=== PATIENT | female | born 1960 | race Caucasian/White ===

== ENCOUNTER 2017-07-31 16:13 | Emergency (ER) | payer BC ==
[2017-07-31 16:20] VITALS: BP 136/76
--- NOTE | 2017-07-31 16:48 | UC ---
Complaint Female HPI - HPI Summary HPI Summary: PT WITH H/O RECURRENT UTI PRESENTS WITH ONSET OF DYSURIA AND LOWER ABDOMINAL DISCOMFORT YESTERDAY. NO FEVER, NAUSEA OR BACK PAIN. FINISHED A 7 DAY COURSE OF KEFLEX FOR KLEBSIELLA UTI JUST 2 DAYS AGO. SX IMPROVED WHILE ON THE ANTIBIOTIC BUT DID NOT ENTIRELY RESOLVE. PT FOLLOWS WITH DR. ZALDIVAR (UROLOGY). - History Of Current Complaint Chief Complaint: UCGU Stated Complaint: UTI Time Seen by Provider: 07/31/17 16:33 Hx Obtained From: Patient Hx Last Menstrual Period: NOW Onset/Duration: Gradual Onset, Lasting Hours, Still Present Severity Initially: Moderate Severity Currently: Moderate Pain Scale Used: 0-10 Numeric Character: Burning Aggravating Factor(s): Urination Alleviating Factor(s): Nothing Associated Signs And Symptoms: Negative: Fever, Back Pain, Vaginal Bleeding/ Discharge, Vaginal Discharge, Nausea, Vomiting(# Of Episodes =), Genital Swelling, Genital Blisters - Allergies/Home Medications Allergies/Adverse Reactions: Allergies Allergy/AdvReac Type Severity Reaction Status Date / Time Nitrofurantoin Allergy Severe Hives Verified 07/31/17 16:17 [From Macrobid] Sulfa Drugs Allergy Severe Hives Verified 07/31/17 16:17 Penicillins Allergy Unknown Unknown Verified 07/31/17 16:17 Reaction Details PMH/Surg Hx/FS Hx/Imm Hx Previously Healthy: Yes - Surgical History Surgical History: Yes Surgery Procedure, Year, and Place: BREAST LUMP REMOVAL OR , THYROID TUMOR 04, [facility] 06 OR 07 (safe up to 1.5) - Family History Known Family History: Positive: None Family History: no family history of cardio-vascular disorders - Social History Alcohol Use: None Substance Use Type: None Smoking Status (MU): Former Smoker Review of Systems Constitutional: Negative Respiratory: Negative Cardiovascular: Negative Gastrointestinal: Abdominal Pain Genitourinary: Dysuria, Frequency, Urgency All Other Systems Reviewed And Are Negative: Yes Physical Exam Triage Information Reviewed: Yes Appearance: Well-Appearing, No Pain Distress, Well-Nourished Vital Signs: Initial Vital Signs Temp 97.8 F 07/31/17 16:17 Pulse 84 07/31/17 16:17 Resp 16 07/31/17 16:17 BP 136/76 07/31/17 16:17 Pulse Ox 99 07/31/17 16:17 Vital Signs Reviewed: Yes Eyes: Positive: Conjunctiva Clear ENT: Positive: Hearing grossly normal Neck: Positive: Supple Respiratory: Positive: No respiratory distress, No accessory muscle use Cardiovascular: Positive: Pulses Normal Abdomen Description: Positive: Soft, Other: - SUPRAPUBIC TTP. Negative: CVA Tenderness (R), CVA Tenderness (L), Distended, Guarding Musculoskeletal: Positive: No Edema Neurological: Positive: Alert Psychological: Positive: Age Appropriate Behavior Skin: Negative: rashes Diagnostics - Laboratory Diagnostic Studies Completed/Ordered: URINE DIP SP. GR. 1.020, 2+ LEUKS, POS NITRITES, 3+ BLOOD, 2+ PROTEIN, TRACE GLUCOSE, TRACE KETONES Complaint Female Dx - Differential Dx/Diagnosis Provider Diagnoses: UTI Discharge - Discharge Plan Condition: Stable Disposition: HOME Prescriptions: Ciprofloxacin TAB* [Cipro 500 MG TAB*] 500 mg PO BID #10 tab Patient Education Materials: Urinary Tract Infection in Women (ED) Referrals: Juan Elliott MD [Primary Care Provider] - If Needed Additional Instructions: URINE SENT FOR CULTURE TO CONFIRM SENSITIVITY TO TREATMENT. WILL ALSO TEST FOR UREAPLASMA WHICH IS A BACTERIA NOT TYPICALLY TESTED FOR ON ROUTINE URINE CULTURE. WE WILL CALL YOU IF YOUR TREATMENT NEEDS TO BE CHANGED. FOLLOW-UP WITH YOUR UROLOGIST TO DISCUSS POSSIBLE UNDERLYING CONDITIONS THAT MAY PUT YOU AT RISK FOR RECURRENT UTI.
[2017-08-04 13:03] LABS: Ureaplasma Source URINE; Ureaplasma parvum PCR Negative; Ureaplasma urealyticum PCR Negative
== END 2017-07-31 17:00 | disposition home or self-care (01) ==
LOC: UCEAST 16:13
DX: N39.0 Urinary tract infection, site not specified (principal); B96.1 Klebsiella pneumoniae [K. pneumoniae] as the cause of diseases classified elsewhere; Z88.1 Allergy status to other antibiotic agents; Z88.0 Allergy status to penicillin; Z88.2 Allergy status to sulfonamides; Z87.891 Personal history of nicotine dependence
CPT/HCPCS: 81003; 87077; 87086; 87186; 87798; 99212; G0463

== ENCOUNTER 2017-08-29 15:55 | Emergency (ER) | payer BC ==
[2017-08-29 16:01] VITALS: BP 136/68
--- NOTE | 2017-08-29 16:28 | UC ---
Complaint Female HPI - HPI Summary HPI Summary: Patient presents with complaints of one day onset urinary urgency and frequency. She states she has a history of UTI's, and feels like she is getting one. She denies f/c/n/v/c/d. She denies any abnormal vaginal discharge, or bleeding. - History Of Current Complaint Chief Complaint: UCGU Stated Complaint: UTI Time Seen by Provider: 08/29/17 16:08 Hx Obtained From: Patient Hx Last Menstrual Period: NOW ?: No Onset/Duration: Gradual Onset, Lasting Days Timing: Lasting Days Severity Initially: Moderate Severity Currently: Moderate Character: Burning Aggravating Factor(s): Urination Alleviating Factor(s): Nothing Associated Signs And Symptoms: Positive: Negative - Risk Factors Ectopic Risk Factor: Negative - Allergies/Home Medications Allergies/Adverse Reactions: Allergies Allergy/AdvReac Type Severity Reaction Status Date / Time Nitrofurantoin Allergy Severe Hives Verified 07/31/17 16:17 [From Macrobid] Sulfa Drugs Allergy Severe Hives Verified 07/31/17 16:17 Penicillins Allergy Unknown Unknown Verified 07/31/17 16:17 Reaction Details PMH/Surg Hx/FS Hx/Imm Hx Previously Healthy: Yes - Surgical History Surgical History: Yes Surgery Procedure, Year, and Place: BREAST LUMP REMOVAL OR , THYROID TUMOR 04, [facility] 06 OR 07 (safe up to 1.5) - Family History Known Family History: Positive: None Family History: no family history of cardio-vascular disorders - Social History Occupation: Employed Full-time Alcohol Use: None Substance Use Type: None Smoking Status (MU): Former Smoker Review of Systems Constitutional: Negative Skin: Negative Eyes: Negative ENT: Negative Respiratory: Negative Cardiovascular: Negative Gastrointestinal: Negative Genitourinary: Frequency, Urgency Motor: Negative Neurovascular: Negative Musculoskeletal: Negative Neurological: Negative Psychological: Negative All Other Systems Reviewed And Are Negative: Yes Physical Exam Triage Information Reviewed: Yes Appearance: Well-Appearing Vital Signs: Initial Vital Signs Temp 98.5 F 08/29/17 15:58 Pulse 76 08/29/17 15:58 Resp 18 08/29/17 15:58 BP 136/68 08/29/17 15:58 Pulse Ox 100 08/29/17 15:58 Eye Exam: Normal ENT Exam: Normal Dental Exam: Normal Neck exam: Normal Neck: Positive: 1 Respiratory Exam: Normal Cardiovascular Exam: Normal Abdominal Exam: Normal Musculoskeletal Exam: Normal Neurological Exam: Normal Psychological Exam: Normal Skin Exam: Normal Complaint Female Dx - Course Course Of Treatment: Patient presents with ua positive for infection. She was given RX for Cipro 500 mg BID x 10 days. She was referred to Dr. Corrigan per patient request. Discharged home in stable condition. - Differential Dx/Diagnosis Differential Diagnosis/HQI/PQRI: Urinary Tract Infection Provider Diagnoses: uti Discharge - Discharge Plan Condition: Stable Disposition: HOME Prescriptions: Ciprofloxacin TAB* [Cipro 500 MG TAB*] 500 mg PO BID #20 tab Patient Education Materials: Urinary Tract Infection in Women (ED) Referrals: Juan Elliott MD [Primary Care Provider] - Deny LEONARDO,Key Sparks [Medical Doctor] -
== END 2017-08-29 16:25 | disposition home or self-care (01) ==
LOC: UCEAST 15:55
DX: N39.0 Urinary tract infection, site not specified (principal); Z88.0 Allergy status to penicillin; Z88.2 Allergy status to sulfonamides
CPT/HCPCS: 81003; 87086; 99212; G0463

== ENCOUNTER 2018-06-07 17:28 | Emergency (ER) | payer BC ==
[2018-06-07 17:53] VITALS: BP 131/69
--- NOTE | 2018-06-07 18:06 | UC ---
Complaint Female HPI - HPI Summary HPI Summary: This is jocelyn Dhillon documenting for attending Wesley Martínez MD. This patient is a 57 year old F presenting to [facility] with a chief complaint of dysuria that began 2 days ago. The patient rates the pain 0/10 in severity. Symptoms aggravated by nothing. Symptoms alleviated by nothing. Patient reports urinary frequency. She reports that symptoms are similar to previous UTI. - History Of Current Complaint Stated Complaint: UTI Time Seen by Provider: 06/07/18 17:48 Hx Obtained From: Patient Hx Last Menstrual Period: NOW ?: No Onset/Duration: Sudden Onset Timing: Constant Severity Initially: Mild Severity Currently: Mild Pain Intensity: 0 Pain Scale Used: 0-10 Numeric Aggravating Factor(s): Nothing Alleviating Factor(s): Nothing - Allergies/Home Medications Allergies/Adverse Reactions: Allergies Allergy/AdvReac Type Severity Reaction Status Date / Time nitrofurantoin Allergy Hives Verified 06/07/18 17:58 [From Macrobid] Penicillins Allergy Unknown Verified 06/07/18 17:58 Reaction Details Sulfa (Sulfonamide Allergy Hives Verified 06/07/18 17:58 Antibiotics) PMH/Surg Hx/FS Hx/Imm Hx Previously Healthy: No Endocrine History: Other Other Endocrine History: Negative diabetes Respiratory History: Asthma - Surgical History Surgical History: Yes Surgery Procedure, Year, and Place: BREAST LUMP REMOVAL OR , THYROID TUMOR , [facility] 06 OR 07 (safe up to 1.5) - Family History Known Family History: Negative: Cardiac Disease, Hypertension Family History: no family history of cardio-vascular disorders - Social History Occupation: Employed Full-time Lives: With Family Alcohol Use: None Substance Use Type: None Smoking Status (MU): Former Smoker Review of Systems Constitutional: Other - Negative fever Genitourinary: Dysuria, Frequency All Other Systems Reviewed And Are Negative: Yes Physical Exam - Summary Physical Exam Summary: VITAL SIGNS: Reviewed. GENERAL: Patient is a well-developed and nourished female who is lying comfortable in the stretcher. Patient is not in any acute respiratory distress. HEAD AND FACE: Normocephalic EYES: PERRLA, EOMI x 2. EARS: Hearing grossly intact. MOUTH: Oropharynx within normal limits. NECK: Supple, trachea is midline, no adenopathy, no JVD, no carotid bruit. CHEST: Symmetric, no tenderness at palpation LUNGS: Clear to auscultation bilaterally. No wheezing or crackles. CVS: Regular rate and rhythm, S1 and S2 present, no murmurs or gallops appreciated. ABDOMEN: Soft, non-tender. Bowel sounds are normal. No abdominal abnormal pulsations. EXTREMITIES: Full ROM in all major joints, no edema, no cyanosis or clubbing. NEURO: Alert and oriented x 3. No acute neurological deficits. Speech is normal and follows commands. SKIN: Dry and warm Triage Information Reviewed: Yes Vital Signs: Initial Vital Signs Temp 97.8 F 06/07/18 17:48 Pulse 96 06/07/18 17:48 Resp 16 06/07/18 17:48 BP 131/69 06/07/18 17:48 Pulse Ox 96 06/07/18 17:48 Vital Signs Reviewed: Yes Complaint Female Dx - Course Course Of Treatment: 57-year-old female presents to the urgent care with a chief complaint of dysuria, urinary frequency and urgency. Urinalysis is with positive leukocytes therefore the patient was given a prescription for ciprofloxacin. We will send the urine for cultures. The patient was discharged home with follow-up with primary care physician. Patient is hemodynamically stable alert and oriented 3. - Differential Dx/Diagnosis Provider Diagnoses: UTI Discharge - Sign-Out/Discharge Documenting (check all that apply): Patient Departure - Discharge Plan Condition: Stable Disposition: HOME Prescriptions: Ciprofloxacin TAB* [Cipro 500 MG TAB*] 500 mg PO BID #6 tab Patient Education Materials: Urinary Tract Infection in Women (DC) Referrals: Juan Elliott MD [Primary Care Provider] - Additional Instructions: Take medications as instructed and adhere to plan Take Acetaminophen or ibuprofen for pain or fever Increase your fluid intake Return to the or go to the emergency department if symptoms worsen Follow-up with primary care physician in next 2-3 days - Billing Disposition and Condition Condition: STABLE Disposition: Home
--- NOTE | 2018-06-10 17:28 | UC ---
- Progress Note Progress Note: + E . Coli sensitive to Cipro - on cipro no change 06/10/2018 [facility] Discharge - Sign-Out/Discharge Documenting (check all that apply): Post-Discharge Follow Up - Discharge Plan Condition: Stable Disposition: HOME Prescriptions: Ciprofloxacin TAB* [Cipro 500 MG TAB*] 500 mg PO BID #6 tab Patient Education Materials: Urinary Tract Infection in Women (DC) Referrals: Juan Elliott MD [Primary Care Provider] - Additional Instructions: Take medications as instructed and adhere to plan Take Acetaminophen or ibuprofen for pain or fever Increase your fluid intake Return to the or go to the emergency department if symptoms worsen Follow-up with primary care physician in next 2-3 days - Billing Disposition and Condition Condition: STABLE Disposition: Home
== END 2018-06-07 18:15 | disposition home or self-care (01) ==
LOC: UCEAST 17:28
DX: N39.0 Urinary tract infection, site not specified (principal); J45.909 Unspecified asthma, uncomplicated; Z88.0 Allergy status to penicillin; Z88.1 Allergy status to other antibiotic agents; Z88.2 Allergy status to sulfonamides
CPT/HCPCS: 81003; 87077; 87086; 87186; 99212; G0463

== ENCOUNTER 2018-11-26 10:41 | Emergency (ER) | payer BC ==
[2018-11-26 10:53] VITALS: BP 140/66
--- NOTE | 2018-11-26 12:16 | UC ---
Lower Extremity/Ankle HPI - HPI Summary HPI Summary: PATIENT FLEW BACK FROM [place] ON 11/01/18. AFTER THIS SHE DEVELOPED RIGHT THIGH/LATERAL LEG PAIN THAT HAS PERSISTED. PAIN HAS WORSENED OVER THE PAST COUPLE OF DAYS TO THE POINT WHERE SHE IS HAVING A HARD TIME ROLLING OVER IN BED AND WALKING. PAIN IS IMPROVED WITH REST. SHE DENIES ANY LEG SWELLING OR CALF TENDERNESS. NO PERSONAL OR FAMILY HISTORY OF BLOOD CLOTS. - History of Current Complaint Chief Complaint: UCLowerExtremity Stated Complaint: LEG PAIN Time Seen by Provider: 11/26/18 10:58 Hx Obtained From: Patient Hx Last Menstrual Period: NOW Onset/Duration: Sudden Onset, Lasting Weeks, Still Present Severity Initially: Moderate Severity Currently: Moderate Pain Intensity: 9 Pain Scale Used: 0-10 Numeric Aggravating Factor(s): Standing, Ambulation Alleviating Factor(s): Rest Able to Bear Weight: Yes - WITH PAIN - Allergies/Home Medications Allergies/Adverse Reactions: Allergies Allergy/AdvReac Type Severity Reaction Status Date / Time nitrofurantoin Allergy Hives Verified 11/26/18 10:53 [From Macrobid] Penicillins Allergy Unknown Verified 11/26/18 10:53 Reaction Details Sulfa (Sulfonamide Allergy Hives Verified 11/26/18 10:53 Antibiotics) Home Medications: Home Medications traZODone TAB* 50 mg PO DAILY 11/26/18 [History Confirmed 11/26/18] PMH/Surg Hx/FS Hx/Imm Hx Respiratory History: Asthma - Surgical History Surgical History: Yes Surgery Procedure, Year, and Place: BREAST LUMP REMOVAL OR , THYROID TUMOR 04, [facility] 06 OR 07 (safe up to 1.5) - Family History Known Family History: Negative: Cardiac Disease, Hypertension Family History: no family history of cardio-vascular disorders - Social History Alcohol Use: None Substance Use Type: None Smoking Status (MU): Former Smoker Review of Systems All Other Systems Reviewed And Are Negative: Yes Constitutional: Positive: Negative Skin: Positive: Negative Respiratory: Positive: Negative Cardiovascular: Positive: Negative Gastrointestinal: Positive: Negative Musculoskeletal: Positive: Decreased ROM, Myalgia Physical Exam Triage Information Reviewed: Yes Appearance: Well-Appearing, No Pain Distress, Well-Nourished Vital Signs: Initial Vital Signs Temp 98 F 11/26/18 10:50 Pulse 71 11/26/18 10:50 Resp 16 11/26/18 10:50 BP 140/66 11/26/18 10:50 Pulse Ox 99 11/26/18 10:50 Vital Signs Reviewed: Yes Eyes: Positive: Conjunctiva Clear ENT: Positive: Hearing grossly normal Neck: Positive: Supple Respiratory: Positive: No respiratory distress, No accessory muscle use Cardiovascular: Positive: Pulses Normal Abdomen Description: Positive: Soft Musculoskeletal: Positive: No Edema, ROM Limited @, Other: - POSITIVE OLIVERA COMPRESSION TEST. NO CALF SWELLING OR TENDERNESS Neurological: Positive: Alert Psychological: Positive: Age Appropriate Behavior Skin: Negative: Rashes Diagnostics - Radiology RLE US Radiology Interpretation Completed By: Radiologist Summary of Radiographic Findings: UNREMARKABLE Lower Extremity Course/Dx - Course Course Of Treatment: CLINICAL PRESENTATION IS NOT HIGHLY CONSISTENT WITH DVT BUT GIVEN ONSET OF SYMPTOMS AFTER AIRPLANE TRAVEL ULTRASOUND WAS OBTAINED. REPORT NEGATIVE FOR DVT. SUSPECT IT BAND SYNDROME. PATIENT REFERRED TO PHYSICAL THERAPY AND ADVISED TO FOLLOW-UP WITH ORTHOPEDICS IF NOT IMPROVING EXPECTED. - Differential Dx/Diagnosis Provider Diagnosis: IT band syndrome Discharge - Sign-Out/Discharge Documenting (check all that apply): Patient Departure All imaging exams completed and their final reports reviewed: Yes - Discharge Plan Condition: Stable Disposition: HOME Patient Education Materials: Iliotibial Band Syndrome (ED) Forms: *Work Release Referrals: Theron Jaimes MD [Medical Doctor] - 2 Weeks Juan Elliott MD [Primary Care Provider] - If Needed Additional Instructions: ULTRASOUND TODAY UNREMARKABLE FOR DVT. I SUSPECT ILIOTIBIAL BAND SYNDROME. REST, STRETCH, ICE NEEDED. OTC IBUPROFEN NEEDED FOR DISCOMFORT. FOLLOW-UP WITH PHYSICAL THERAPY. CALL ORTHOPEDICS IF YOU'RE NOT IMPROVING EXPECTED. - Billing Disposition and Condition Condition: STABLE Disposition: Home
== END 2018-11-26 12:00 | disposition home or self-care (01) ==
LOC: UCEAST 10:41
DX: M76.31 Iliotibial band syndrome, right leg (principal); J45.909 Unspecified asthma, uncomplicated; Z88.1 Allergy status to other antibiotic agents; Z88.0 Allergy status to penicillin; Z88.2 Allergy status to sulfonamides; Z87.891 Personal history of nicotine dependence
CPT/HCPCS: 99211; G0463

== ENCOUNTER 2019-05-26 11:46 | Emergency (ER) | payer BC ==
[2019-05-26 12:28] VITALS: BP 116/46
--- NOTE | 2019-05-26 12:57 | UC ---
UC General HPI - HPI Summary HPI Summary: 58 yo female c/o freq /urg since last evening. No fever / chills. No abd pain nor back pain. No rash. Hx uti's, most recent Aug 2018. Also notes long hx hematuria, followed by urology. Took otc pyridium this am. - History of Current Complaint Chief Complaint: UCGU Stated Complaint: URINARY ISSUE Time Seen by Provider: 05/26/19 12:56 Hx Obtained From: Patient Hx Last Menstrual Period: NOW Pain Intensity: 2 - Allergy/Home Medications Allergies/Adverse Reactions: Allergies Allergy/AdvReac Type Severity Reaction Status Date / Time nitrofurantoin Allergy Hives Verified 05/26/19 12:29 [From Macrobid] Penicillins Allergy Unknown Verified 05/26/19 12:29 Reaction Details Sulfa (Sulfonamide Allergy Hives Verified 05/26/19 12:29 Antibiotics) ppd Allergy Rash Uncoded 05/26/19 12:29 PMH/Surg Hx/FS Hx/Imm Hx Previously Healthy: Yes - Surgical History Surgical History: Yes Surgery Procedure, Year, and Place: BREAST right benign LUMP REMOVAL OR , THYROID TUMOR benign 2003, [facility] 06 OR 07 (safe up to 1.5)denies other - Family History Known Family History: Negative: Cardiac Disease, Hypertension Family History: no family history of cardio-vascular disorders - Social History Alcohol Use: None Substance Use Type: None Smoking Status (MU): Former Smoker Review of Systems All Other Systems Reviewed And Are Negative: Yes Constitutional: Positive: Negative Skin: Positive: Negative Eyes: Positive: Negative ENT: Positive: Negative Respiratory: Positive: Negative Cardiovascular: Positive: Negative Gastrointestinal: Positive: Other - see hpi no gi issues Genitourinary: Positive: Other - see hpi Motor: Positive: Negative Neurovascular: Positive: Negative Musculoskeletal: Positive: Negative Neurological: Positive: Negative Psychological: Positive: Negative Is Patient Immunocompromised?: No Physical Exam Triage Information Reviewed: Yes Appearance: Well-Appearing, Well-Nourished Vital Signs: Initial Vital Signs Temp 97.2 F 05/26/19 12:26 Pulse 84 05/26/19 12:26 Resp 16 05/26/19 12:26 BP 116/46 05/26/19 12:26 Pulse Ox 97 05/26/19 12:26 Vital Signs Reviewed: Yes Eye Exam: Normal ENT Exam: Normal Neck exam: Normal Neck: Positive: Supple Respiratory Exam: Normal Respiratory: Positive: Chest non-tender, Lungs clear, Normal breath sounds, No respiratory distress, No accessory muscle use Cardiovascular Exam: Normal Cardiovascular: Positive: RRR Abdominal Exam: Normal - no cvat Abdomen Description: Positive: Nontender Musculoskeletal Exam: Normal Neurological Exam: Normal Psychological Exam: Normal Skin Exam: Normal Course/Dx - Course Course Of Treatment: all - nitrofurantoin, pcn, sulfa, ppd Ms. Quintanilla reports that usually cephalosporins have worked well (tolerates despite pcn all) . [facility] Rx ceftin. Cx sent. Dip not performed d/t pyridium. Questions as posed answered to the best of my ability. - Diagnoses Provider Diagnosis: UTI (urinary tract infection) Discharge - Sign-Out/Discharge Documenting (check all that apply): Patient Departure All imaging exams completed and their final reports reviewed: No Studies - Discharge Plan Condition: Stable Disposition: HOME Prescriptions: ceFUROXime TAB(*) [Ceftin TAB 250 MG(*)] 500 mg PO BID 10 Days #40 tab Patient Education Materials: Urinary Tract Infection in Women (ED) Referrals: Juan Elliott MD [Primary Care Provider] - Additional Instructions: Hydrate. Yogurt and / or probiotic. Urine culture has been sent. Follow up with your primary care physician and / or urologist - call Thursday to review culture and follow up. Please seek medical attention for worse or new problems. - Billing Disposition and Condition Condition: STABLE Disposition: Home
== END 2019-05-26 13:31 | disposition home or self-care (01) ==
LOC: UCEAST 11:46
DX: N39.0 Urinary tract infection, site not specified (principal); Z87.891 Personal history of nicotine dependence; Z88.0 Allergy status to penicillin; Z88.2 Allergy status to sulfonamides
CPT/HCPCS: 87077; 87086; 87186; 99212; G0463

== ENCOUNTER 2019-09-02 19:42 | Emergency (ER) | payer BC ==
[2019-09-02 20:03] VITALS: BP 135/70
--- NOTE | 2019-09-02 20:05 | UC ---
Complaint Female HPI - HPI Summary HPI Summary: Patient is a 58-year-old female presenting with UTI symptoms 1 day. He notes burning urgency and frequency. Note suprapubic pressure. Patient has taken Azo today for pain relief. Denies flank pain. Denies fevers, chills, nausea, and vomiting. Denies visible blood in urine but notes chronic blood in urine of an unknown source. Patient notes recurrent UTIs and sees Dr. Emery frequently. Patient states she has taken Keflex and Cipro for UTIs in the past but normally has switched to Cipro because Keflex does not usually work. - History Of Current Complaint Stated Complaint: BURNING URINATION Hx Obtained From: Patient Hx Last Menstrual Period: NOW Onset/Duration: Sudden Onset Timing: Constant - Allergies/Home Medications Allergies/Adverse Reactions: Allergies Allergy/AdvReac Type Severity Reaction Status Date / Time nitrofurantoin Allergy Hives Verified 09/02/19 19:59 [From Macrobid] Penicillins Allergy Unknown Verified 09/02/19 19:59 Reaction Details Sulfa (Sulfonamide Allergy Hives Verified 09/02/19 19:59 Antibiotics) ppd Allergy Rash Uncoded 09/02/19 19:59 PMH/Surg Hx/FS Hx/Imm Hx Previously Healthy: Yes GI/ History: Other - Recurrent UTIs. Chronic blood in urine with unknown cause - Surgical History Surgical History: Yes Surgery Procedure, Year, and Place: BREAST right benign LUMP REMOVAL OR , THYROID TUMOR benign 2003, [facility] 06 OR 07 (safe up to 1.5)denies other - Family History Known Family History: Negative: Cardiac Disease, Hypertension Family History: no family history of cardio-vascular disorders - Social History Alcohol Use: None Substance Use Type: None Smoking Status (MU): Former Smoker Review of Systems All Other Systems Reviewed And Are Negative: Yes Constitutional: Positive: Negative. Negative: Fever, Chills Respiratory: Positive: Negative. Negative: Shortness Of Breath Cardiovascular: Positive: Negative. Negative: Palpitations, Chest Pain Gastrointestinal: Positive: Abdominal Pain - pelvic pressure. Negative: Vomiting, Diarrhea, Nausea Genitourinary: Positive: Dysuria, Frequency, Urgency, Vaginal/Penile Burning. Negative: Hematuria, Vaginal/Penile Itching, Vaginal/Penile Discharge, Vaginal/ Penile Pain, Vaginal/Penile Tenderness, Ulceration/Lesion, Abnormal Bleeding Musculoskeletal: Positive: Negative Neurological: Positive: Negative Physical Exam Triage Information Reviewed: Yes Appearance: Well-Appearing, No Pain Distress, Well-Nourished Vital Signs: Vital Signs (72 hours) 09/02/19 19:53 Temperature 97.5 F Pulse Rate 77 Respiratory 18 Rate Blood Pressure 135/70 (mmHg) O2 Sat by Pulse 95 Oximetry Vital Signs Reviewed: Yes Eyes: Positive: Conjunctiva Clear ENT: Positive: Hearing grossly normal Neck: Positive: Supple Respiratory: Positive: No respiratory distress Abdomen Description: Positive: Nontender. Negative: CVA Tenderness (R), CVA Tenderness (L) Neurological: Positive: Alert Psychological: Positive: Age Appropriate Behavior Skin Exam: Normal Complaint Female Dx - Course Course Of Treatment: Discussed with patient that because she took Azo today we cannot test her urine in the urgent care and a culture will be sent. Informed patient that she will be notified with any changes need to be made in her treatment. I treated with Cipro because patient gets recurrent UTIs and states that that is the only medication that gets rid of them for her. Patient voiced understanding of black box warning of Cipro. Patient received first dose here in case her pharmacy was closed. Instructed her to follow up with her PCP or Dr. Emery if symptoms persist. Patient voiced understanding and agreed to the treatment plan. - Differential Dx/Diagnosis Provider Diagnosis: Urinary tract infection Discharge ED - Sign-Out/Discharge Documenting (check all that apply): Patient Departure All imaging exams completed and their final reports reviewed: No Studies - Discharge Plan Condition: Stable Disposition: HOME Prescriptions: Ciprofloxacin TAB* [Cipro 250 MG Tab*] 250 mg PO BID #5 tab Patient Education Materials: Urinary Tract Infection in Women (ED) Referrals: Juan Elliott MD [Primary Care Provider] - If Needed Jayy Awan MD [Medical Doctor] - If Needed Additional Instructions: As discussed, take cipro as prescribed for the treatment of your UTI. You received your first dose here. A culture has been sent and you will be notified if any changes need to be made in your treatment. Follow up with your PCP or Dr. Emery if your symptoms persist. Return or go to the emergency room if symptoms worsen. - Billing Disposition and Condition Condition: STABLE Disposition: Home - Attestation Statements Provider Attestation: I was available for consult. This patient was seen by the SEBASTIAN. The patient was not presented to, seen by, or examined by me. -hSira
[2019-09-02] MEDS ORDERED: Ciprofloxacin TAB* 250 MG PO ONE (20:07)
== END 2019-09-02 20:21 | disposition home or self-care (01) ==
LOC: UCEAST 19:42
DX: N39.0 Urinary tract infection, site not specified (principal); Z87.891 Personal history of nicotine dependence; Z88.1 Allergy status to other antibiotic agents; Z88.0 Allergy status to penicillin; Z88.2 Allergy status to sulfonamides; Z88.8 Allergy status to other drugs, medicaments and biological substances
CPT/HCPCS: 87077; 87086; 87186; 99212; A9270-GY; G0463

== ENCOUNTER 2019-09-10 16:37 | Emergency (ER) | payer BC ==
[2019-09-10 16:48] VITALS: BP 130/71
--- NOTE | 2019-09-10 17:01 | UC ---
Knee Pain HPI - HPI Summary HPI Summary: Tripped and fell while hiking today3 inch laceration left knee with divot avulsion medially full rom tetanus is UTP- - History of Current Complaint Chief Complaint: UCLowerExtremity Stated Complaint: LEFT KNEE INJURY Time Seen by Provider: 09/10/19 16:50 Hx Obtained From: Patient Hx Last Menstrual Period: post menopause ?: No Onset/Duration: Sudden Onset, Lasting Hours Pain Intensity: 5 Pain Scale Used: 0-10 Numeric Character: Aching Aggravating Factor(s): Weight Bearing Alleviating Factor(s): Rest Associated Signs And Symptoms: Positive: Negative Able to Bear Weight: Yes - Allergies/Home Medications Allergies/Adverse Reactions: Allergies Allergy/AdvReac Type Severity Reaction Status Date / Time nitrofurantoin Allergy Hives Verified 09/10/19 16:48 [From Macrobid] Penicillins Allergy Unknown Verified 09/10/19 16:48 Reaction Details Sulfa (Sulfonamide Allergy Hives Verified 09/10/19 16:48 Antibiotics) ppd Allergy Rash Uncoded 09/10/19 16:48 Home Medications: Home Medications Ibuprofen [Ibu] 09/10/19 [History] PMH/Surg Hx/FS Hx/Imm Hx Previously Healthy: Yes - Surgical History Surgical History: Yes Surgery Procedure, Year, and Place: BREAST right benign LUMP REMOVAL OR , THYROID TUMOR benign 2003, [facility] 06 OR 07 (safe up to 1.5)denies other - Family History Known Family History: Negative: Cardiac Disease, Hypertension Family History: no family history of cardio-vascular disorders - Social History Occupation: Employed Full-time Lives: With Family Alcohol Use: None Substance Use Type: None Smoking Status (MU): Former Smoker Review of Systems All Other Systems Reviewed And Are Negative: Yes Constitutional: Positive: Negative Skin: Positive: Other - 3 inch laceration with medial skin divat Eyes: Positive: Negative ENT: Positive: Negative Respiratory: Positive: Negative Cardiovascular: Positive: Negative Gastrointestinal: Positive: Negative Genitourinary: Positive: Negative Motor: Positive: Negative Neurovascular: Positive: Negative Musculoskeletal: Positive: Negative Neurological: Positive: Negative Psychological: Positive: Negative Is Patient Immunocompromised?: No Physical Exam Triage Information Reviewed: Yes Appearance: Well-Appearing, No Pain Distress, Well-Nourished Vital Signs: Initial Vital Signs Temp 98.1 F 09/10/19 16:42 Pulse 80 10/19/19 16:42 Resp 16 09/10/19 16:42 BP 130/71 09/10/19 16:42 Pulse Ox 98 09/10/19 16:42 Eye Exam: Normal Eyes: Positive: Conjunctiva Clear ENT Exam: Normal ENT: Positive: Normal ENT inspection, Hearing grossly normal. Negative: Trismus , Muffled voice, Hoarse voice Neck exam: Normal Neck: Positive: Supple Respiratory Exam: Normal Respiratory: Positive: No respiratory distress, No accessory muscle use Cardiovascular Exam: Normal Cardiovascular: Positive: Brisk Capillary Refill Musculoskeletal Exam: Normal Musculoskeletal: Positive: Strength Intact, ROM Intact, No Edema Neurological Exam: Normal Neurological: Positive: Alert, Muscle Tone Normal Skin: Positive: Other - 3 inch laceration left knee Procedures - Laceration/Wound Repair 1 Location: lower extremity - left knee Description: Linear Length, Depth and Shape: 3 inches linear Betadine Prep?: Yes Irrigated w/ Saline (ccs): 250 Laceration/Wound Explored: contaminated, foreign body removed - dirt Closure: SteriStrips, [place] #__ - 1 Layer Closure?: No Sterile Dressing Applied?: Yes Knee Pain Course/Dx - Course Course Of Treatment: keflex qid for 7 days---bulky dressing, knee immobilizer, ibuprofen for pain, elevation--return in 10 days for staple removal, follow with ortho prn - Differential Dx/Diagnosis Provider Diagnosis: Laceration of left knee with foreign body Discharge ED - Sign-Out/Discharge Documenting (check all that apply): Patient Departure All imaging exams completed and their final reports reviewed: Yes - Discharge Plan Condition: Stable Disposition: HOME Prescriptions: Cephalexin CAP* [Keflex CAP*] 500 mg PO QID #28 cap Patient Education Materials: Ibuprofen (By mouth), Laceration (ED), Steristrips (ED) Forms: *Work Release Referrals: Antione Lauren MD [Medical Doctor] - 3 Days Additional Instructions: Return in 10 days for staple removal---use knee immobilizer until rechecked on staple removal date - Billing Disposition and Condition Condition: STABLE Disposition: Home
[2019-09-10] MEDS ORDERED: Benzoin Compound STICK TOPICAL ONE (17:48)
[2019-09-10] MEDS ORDERED: Cephalexin CAP* 500 MG PO ONE (17:50)
== END 2019-09-10 18:18 | disposition home or self-care (01) ==
LOC: UCEAST 16:37
DX: S81.022A Laceration with foreign body, left knee, initial encounter (principal); Z88.0 Allergy status to penicillin; Z88.2 Allergy status to sulfonamides; Z88.8 Allergy status to other drugs, medicaments and biological substances; Z87.891 Personal history of nicotine dependence; Z88.1 Allergy status to other antibiotic agents; Z88.7 Allergy status to serum and vaccine; W01.0XXA Fall on same level from slipping, tripping and stumbling without subsequent striking against object, initial encounter; Y92.9 Unspecified place or not applicable; Y93.01 Activity, walking, marching and hiking
CPT/HCPCS: 99213; A9270-GY; G0463

== ENCOUNTER 2019-09-21 13:07 | Emergency (ER) | payer BC ==
[2019-09-21 15:11] VITALS: BP 120/67
--- NOTE | 2019-09-21 15:19 | UC ---
HPI Wound/Suture Re-check - HPI Summary HPI Summary: 58 yo with laceration of the left knee when she fell while hiking. Has been wearing immobilizer, with some knee pain, which has improved since she stopped use of it yesterday. Minimal pain, no drainage from the wound. - History Of Current Complaint Chief Complaint: UCLaceration Stated Complaint: STAPLE REMOVAL Time Seen by Provider: 09/21/19 15:12 Hx Obtained From: Patient Hx Last Menstrual Period: post menopause Onset/Duration: Sudden Onset Severity: Moderate Pain Intensity: 0 - Allergies/Home Medications Allergies/Adverse Reactions: Allergies Allergy/AdvReac Type Severity Reaction Status Date / Time nitrofurantoin Allergy Hives Verified 09/21/19 15:09 [From Macrobid] Penicillins Allergy Unknown Verified 09/21/19 15:09 Reaction Details Sulfa (Sulfonamide Allergy Hives Verified 09/21/19 15:09 Antibiotics) ppd Allergy Rash Uncoded 09/21/19 15:09 PMH/Surg Hx/FS Hx/Imm Hx Previously Healthy: Yes - Surgical History Surgical History: Yes Surgery Procedure, Year, and Place: BREAST right benign LUMP REMOVAL OR , THYROID TUMOR benign 2003, [facility] 06 OR 07 (safe up to 1.5)denies other - Family History Known Family History: Positive: Non-Contributory Negative: Cardiac Disease, Hypertension Family History: no family history of cardio-vascular disorders - Social History Occupation: Employed Full-time Lives: With Family Alcohol Use: None Substance Use Type: None Smoking Status (MU): Former Smoker Review of Systems All Other Systems Reviewed And Are Negative: Yes Constitutional: Positive: Negative Skin: Positive: Other - wound healing well. Musculoskeletal: Positive: Other: - Left knee ache and stiffness improving. No sense of instability. Neurological: Positive: Negative Is Patient Immunocompromised?: No Physical Exam Triage Information Reviewed: Yes Appearance: Well-Appearing, No Pain Distress Vital Signs: Initial Vital Signs Temp 98.2 F 09/21/19 15:09 Pulse 89 09/21/19 15:09 Resp 18 09/21/19 15:09 BP 120/67 09/21/19 15:09 Pulse Ox 98 09/21/19 15:09 Neck exam: Normal Respiratory: Positive: Lungs clear, Normal breath sounds Cardiovascular: Positive: RRR, No Murmur Musculoskeletal Exam: Normal Musculoskeletal: Positive: ROM Intact Skin Exam: Other - left patellar area with well healed laceration, removed 1 staple and steristrip. Light crust, no drainage. Course/Dx - Course Course Of Treatment: topical antibiotics to left knee lacertation - Differential Dx - Laceration/Wound Differential Diagnoses: Other - laceration left knee. - Diagnosis Provider Diagnosis: Laceration of left knee without complication Discharge ED - Sign-Out/Discharge Documenting (check all that apply): Patient Departure All imaging exams completed and their final reports reviewed: No Studies - Discharge Plan Condition: Good Disposition: HOME Patient Education Materials: Staple Care (ED) Referrals: Juan Elliott MD [Primary Care Provider] - Additional Instructions: Apply topical antibiotic to the left knee area for 1 to 2 days, and observe for increased pain and redness. Follow up if you have any concerns about the wound healing. - Billing Disposition and Condition Condition: GOOD Disposition: Home
== END 2019-09-21 15:29 | disposition home or self-care (01) ==
LOC: UCEAST 13:07
DX: S81.012D Laceration without foreign body, left knee, subsequent encounter (principal); Z88.1 Allergy status to other antibiotic agents; Z88.0 Allergy status to penicillin; Z88.2 Allergy status to sulfonamides; Z88.8 Allergy status to other drugs, medicaments and biological substances; Z87.891 Personal history of nicotine dependence; W19.XXXD Unspecified fall, subsequent encounter